=== PATIENT | male | born 1990 | race Caucasian/White ===

== ENCOUNTER 2017-04-28 05:15 | Emergency (ER) | payer SELFPAY ==
[~2017-04-28] VITALS: Ht 180.3 cm; Wt 166.5 kg
[2017-04-28 05:23] VITALS: BP 121/83; Ht 180.3 cm; Wt 166.5 kg
== END 2017-04-28 06:19 | disposition home or self-care (01) ==
LOC: ED 05:15
DX: H66.91 Otitis media, unspecified, right ear (principal); E66.01 Morbid (severe) obesity due to excess calories; F17.210 Nicotine dependence, cigarettes, uncomplicated; F12.90 Cannabis use, unspecified, uncomplicated; Z71.6 Tobacco abuse counseling
CPT/HCPCS: 99406